=== PATIENT | female | born 1955 | race American Indian/Alaskan Native ===

== ENCOUNTER 2022-02-11 12:11 | Inpatient (IN) | payer MEDICARE ==
[2022-02-11 13:49] LABS: Basophils % (Auto) 0.4 % (0.0-1.8); Eosinophils % (Auto) 0.5 % (0.0-4.3); Lymphocytes # (Auto) 0.3 K/mm3 (1.2-5.4); Lymphocytes % (Auto) 3.4 % (13.4-35.0); Mean Corpuscular HGB Conc 30 % (30-34); Mean Corpuscular Volume 93 fl (79-97); Monocytes # (Auto) 1.3 K/mm3 (0.0-0.8); Platelet Count 109 K/mm3 (140-440); Red Blood Count 3.31 M/mm3 (3.65-5.03)
[2022-02-11 14:13] LABS: Albumin 4.3 g/dL (3.9-5); Calcium 9.3 mg/dL (8.4-10.2)
[2022-02-11 14:15] LABS: Hematocrit 30.9 % (30.3-42.9); Hemoglobin 9.1 gm/dl (10.1-14.3); Red Cell Distribution Width 21.8 % (13.2-15.2)
[2022-02-11 15:04] LABS: ABG Base Excess 11.5 mmol/L (-2.0-3.0); ABG HCO3 40.5 mmol/L (20.0-26.0); ABG Methemoglobin 0.5 % (0.0-1.5); ABG Oxygen Saturation 97.1 % (95.0-99.0); ABG PCO2 90.9 mm Hg; ABG PH 7.267 pH Units (7.350-7.450); ABG PO2 103.1 mm Hg (80.0-90.0)
--- NOTE | 2022-02-11 16:08 | XRay Report ---
CHEST 1 VIEW 02/11/2022 2:57 PM INDICATION / CLINICAL INFORMATION: Hypoxia, abnormal blood gas. COMPARISON: 01/22/2015 FINDINGS: SUPPORT DEVICES: None. HEART / MEDIASTINUM: Mild cardiomegaly, new since the previous exam LUNGS / PLEURA: There is mild central pulmonary venous congestion, new. No convincing infiltrate, ple ural effusion or pneumothorax on portable exam. ADDITIONAL FINDINGS: No significant additional findings. IMPRESSION: 1. New cardiomegaly and pulmonary venous congestion. Signer Name: Compa Aguiar Jr, MD Signed: 02/11/2022 4:04 PM Workstation Name: [id number]
--- NOTE | 2022-02-11 16:33 | History and Physical Report ---
History of Present Illness Chief complaint: I feel tired History of present illness: 66 YO Female with HTN, Lung Cancer in Remission, OA, COPD, Chronic respiratory Failure on Home Oxygen at 5L via NC, Mild Intermittent Asthma, CHF, Paroxysmal Atrial Fib, HLD, DM, Chronic Pain Syndrome presents ED for evaluation. Patient reports "I feel tired". Patient is lethargic with diminished cognition and is unable to provide detailed history. Patient history brought by EMS staff, ED staff, as well as patient daughter who is at bedside during interview. As per daughter the patient has experienced increased pain over the past several days and took additional dose of benzodiazepine as well as pain medication. Patient subsequently became confused with decreased responsiveness. EMS notified and upon arrival the patient was found to be in distress with a pulse oximetry in the 40s. Patient placed on noninvasive positive pressure ventilation and transported to [facility] for further care and evaluation of the aforementioned symptoms. The patient was seen and evaluated in the emergency department. All lab and imaging studies reviewed. Patient found to have a pulse oximetry of 85% on room air which is consistent with acute hypoxemic respiratory failure suspected secondary to unintentional overdose, respiratory acidosis, and acute kidney injury. Patient admitted to medical floor due to increased risk of worsening symptoms after medical stabilization. Patient continued on noninvasive positive pressure ventilation. No reports of fever, chills, chest pain, palpitation, adductive cough, skin rash, trauma, unilateral leg swelling pain, palpitations, individual/family history of DVT/PE/bleeding/blood clotting disorders, known exposure to COVID-19. No prior admission for review. All medication listed at time of admission as reconciled. Advanced care planning conducted in ED. Past History Past Medical History: atrial fib, COPD, heart failure, hypertension, hyperlipi demia, other (See HPI) Past Surgical History: No surgical history, Other (Reviewed) Social history: . denies: smoking, alcohol abuse, prescription drug abuse Family history: diabetes, hypertension Medications and Allergies Allergies Allergy/AdvReac Type Severity Reaction Status Date / Time Sulfa (Sulfonamide Allergy Severe Hives Verified 02/11/22 12:17 Antibiotics) Home Medications Medication Instructions Recorded Confirmed Last Taken Type HYDROcodone/APAP 10-325 [[place] 1 tab PO Q6H PRN 01/16/15 08/01/15 12/13/19 History 10-325 mg TAB] Simvastatin (NF) [Zocor TAB] 40 mg PO DAILY 01/16/15 08/01/15 12/14/19 History Tiotropium [place] [Spiriva] 2 puff IH BID 01/16/15 08/01/15 12/14/19 History Venlafaxine HCl [Effexor Xr] 150 mg PO DAILY 01/16/15 08/01/15 10/15/18 History metFORMIN [Glucophage] 500 mg PO QDAY 01/16/15 08/01/15 12/14/19 History Dexlansoprazole [Dexilant] 60 mg PO QDAY 01/17/15 08/01/15 12/14/19 History Loratadine (Nf) [Claritin (Nf)] 10 mg PO DAILY 01/17/15 08/01/15 12/14/19 Histo ry Montelukast [Singulair] 10 mg PO QPM 01/17/15 08/01/15 11/24/19 History Valsartan/Hydrochlorothiazide 1 tab PO QDAY 01/17/15 08/01/15 07/31/15 History [Diovan Hct 160-25 mg] traZODone [Desyrel] 100 mg PO QHS 01/17/15 08/01/15 12/13/19 History Colesevelam HCl [Welchol] 625 mg PO BID 30 Days #60 tablet 12/15/19 Unknown Rx Fluconazole [Diflucan ORAL SOLN] 100 mg PO QDAY 10 Days #10 12/15/19 Unknown Rx oral.liqd hydroCHLOROthiazide [HCTZ] 12/15/19 12/14/19 History metroNIDAZOLE [Flagyl TAB] 250 mg PO Q8HR 10 Days #30 tablet 12/15/19 Unknown Rx Review of Systems Constitutional: no weight loss, no weight gain, no fever, no chills Ears, nose, mouth and throat: no ear pain, no ear discharge, no tinnitis, no nose pain Breasts: no change in shape, no swelling, no mass Cardiovascular: no chest pain, no orthopnea, no palpitations, no rapid/irregular heart beat Respiratory: no cough, no excessive sputum, no shortness of breath Gastrointestinal: no nausea, no vomiting, no diarrhea, no constipation Genitourinary Female: no pelvic pain, no flank pain, no dysuria, no urinary frequency, no urgency Rectal: no pain, no incontinence, no bleeding Musculoskeletal: no neck stiffness, no arm numbness/tingling, no low back pain, no shooting leg pain Integumentary: no rash, no pruritis, no redness, no wounds, no blisters Neurological: no paralysis, no parathesias Psychiatric: no memory loss, no sleep disturbances, no hypersomnia, no change in libido Endocrine: no cold intolerance, no heat intolerance, no polydipsia, no polyuria Hematologic/Lymphatic: no easy bruising, no easy bleeding Allergic/Immunologic: no allergic rhinitis, no wheezing Exam - Constitutional Vitals: Temp Pulse Resp BP Pulse Ox 97.5 F L 68 20 120/68 98 02/11/22 12:43 02/11/22 14:54 02/11/22 14:54 02/11/22 14:54 02/11/22 14:54 General appearance: Present: mild distress - EENT Eyes: Present: PERRL ENT: hearing intact, clear oral mucosa, hearing decreased - Neck Neck: Present: supple, normal ROM - Respiratory Respiratory effort: normal Respiratory: bilateral: diminished - Cardiovascular Heart Sounds: Present: S1 & S2. Absent: rub, click - Extremities Extremities: pulses symmetrical, No edema Peripheral Pulses: within normal limits - Abdominal General gastrointestinal: Present: soft, non-tender, non-distended, normal bowel sounds Female genitourinary: Present: normal - Integumentary Integumentary: Present: clear, warm, dry - Musculoskeletal Musculoskeletal: gait normal, strength equal bilaterally - Psychiatric Psychiatric: appropriate mood/affect, intact judgment & insight - Neurologic Neurologic: CNII-XII intact, moves all extremities Results - Labs CBC & Chem 7: 02/11/22 13:06 02/11/22 13:06 Labs: Abnormal lab results 02/11/22 02/11/22 02/11/22 Range/Units 13:06 13:06 13:06 RBC 3.31 L (3.65-5.03) M/mm3 Hgb 9.1 L (10.1-14.3) gm/dl RDW 21.8 H (13.2-15.2) % Plt Count 109 L (140-440) K/mm3 Lymph % (Auto) 3.4 L (13.4-35.0) % [place] % (Auto) 15.0 H (0.0-7.3) % Lymph # (Auto) 0.3 L (1.2-5.4) K/mm3 [place] # (Auto) 1.3 H (0.0-0.8) K/mm3 Seg Neutrophils % 80.7 H (40.0-70.0) % ABG pH (7.350-7.450) pH Units ABG pO2 (80.0-90.0) mm Hg ABG HCO3 (20.0-26.0) mmol/L ABG Base Excess (-2.0-3.0) mmol/L ABG Hemoglobin (12.0-16.0) gm/dl Oxyhemoglobin (95.0-99.0) % Potassium 5.1 H (3.6-5.0) mmol/L Chloride 97.3 L (98-107) mmol/L Carbon Dioxide 36 H (22-30) mmol/L BUN 38 H (7-17) mg/dL Creatinine 2.0 H (0.6-1.2) mg/dL Total Protein 5.9 L (6.3-8.2) g/dL Salicylates < 0.3 L (2.8-20.0) mg/dL Acetaminophen (10.0-30.0) ug/mL 02/11/22 02/11/22 Range/Units 13:06 14:39 RBC (3.65-5.03) M/mm3 Hgb (10.1-14.3) gm/dl RDW (13.2-15.2) % Plt Count (140-440) K/mm3 Lymph % (Auto) (13.4-35.0) % [place] % (Auto) (0.0-7.3) % Lymph # (Auto) (1.2-5.4) K/mm3 [place] # (Auto) (0.0-0.8) K/mm3 Seg Neutrophils % (40.0-70.0) % ABG pH 7.267 L (7.350-7.450) pH Units ABG pO2 103.1 H (80.0-90.0) mm Hg ABG HCO3 40.5 H (20.0-26.0) mmol/L ABG Base Excess 11.5 H (-2.0-3.0) mmol/L ABG Hemoglobin 8.5 L (12.0-16.0) gm/dl Oxyhemoglobin 94.2 L (95.0-99.0) % Potassium (3.6-5.0) mmol/L Chloride (98-107) mmol/L Carbon Dioxide (22-30) mmol/L BUN (7-17) mg/dL Creatinine (0.6-1.2) mg/dL Total Protein (6.3-8.2) g/dL Salicylates (2.8-20.0) mg/dL Acetaminophen 5.0 L (10.0-30.0) ug/mL Assessment and Plan - Patient Problems (1) Acute and chronic respiratory failure with hypercapnia Current Visit: Yes Status: Acute Plan to address problem: Chest x-ray, supplemental oxygen, pulse oximetry, noninvasive positive pressure ventilation, arterial blood gas, supportive care. Pulmonary toilet. (2) Acute kidney injury ([place]) with acute tubular necrosis (ATN) Current Visit: Yes Status: Acute Plan to address problem: IV fluid resuscitation therapy as clinically indicated, BMP, repeat BMP in a.m., monitor fluid balance. (3) Accidental overdose Current Visit: Yes Status: Acute Qualifiers: Encounter type: initial encounter Qualified Code(s): T50.901A - Poisoning by unspecified drugs, medicaments and biological substances, accidental (unintentional), initial encounter Plan to address problem: Supportive care, hold narcotic therapy for the next 8 hours. Pain control, supportive care. NSAID therapy as clinically indicated. (4) Chronic pain syndrome Current Visit: Yes Status: Acute Plan to address problem: Supportive care, continue medical management. Hold narcotic therapy for the next 8 hours. NSAID therapy as clinically indicated. (5) COPD (chronic obstructive pulmonary disease) Current Visit: No Status: Chronic Qualifiers: COPD type: chronic bronchitis Chronic bronchitis type: simple Qualified Code(s): J41.0 - Simple chronic bronchitis Plan to address problem: Submental oxygen, pulse oximetry, nebulizer therapy, pulmonary toilet, continue medical management. No acute exacerbation at this time. (6) HTN (hypertension) Current Visit: No Status: Chronic Qualifiers: Hypertension type: primary hypertension Qualified Code(s): I10 - Essential (primary) hypertension Plan to address problem: Monitor blood pressure every shift, continue medical management. (7) Lung cancer Current Visit: Yes Status: Acute Plan to address problem: Chronic, supportive care. Outpatient oncology follow-up. (8) DVT prophylaxis Current Visit: Yes Status: Acute Plan to address problem: SCD to bilateral lower extremities while in bed (9) Advance care planning Current Visit: Yes Status: Acute Plan to address problem: Disease education data, care plan discussed, diagnoses discussed, prognosis discussed, patient is full code. Patient family acknowledges understanding and agreement with care plan. +30 minutes (10) Preventative health care Current Visit: Yes Status: Acute Plan to address problem: Patient and family counseled regarding home safety, monitoring narcotic ingestion, outpatient follow-up with primary care physician for all age and risk factor appropriate screening test. +30 minutes.
--- NOTE | 2022-02-11 16:38 | Emergency Department Report ---
ED General Adult HPI - General Chief complaint: Overdose Stated complaint: OVERDOSE Time Seen by Provider: 02/11/22 12:52 Source: patient, EMS Mode of arrival: Stretcher Limitations: No Limitations - History of Present Illness Initial comments: Patient is a 66-year-old female with history of lung cancer in remission brought in by EMS for suspected overdose. Patient has chronic right shoulder pain due to rotator cuff tear and uses fentanyl patches. In addition to her fentanyl patch she took oxycodone and Xanax. Daughter reports patient was severely altered and minimally responsive and called EMS. Initial oxygen saturations were in the 40s. She was subsequently placed on a nonrebreather and given Narcan. On arrival she is awake and appears to be in no acute distress. She is oxygen dependent and on 5 L at baseline. Uses CPAP at night. Severity scale (0 -10): 0 - Related Data Home Medications Medication Instructions Recorded Confirmed Last Taken HYDROcodone/APAP 10-325 [[place] 1 tab PO Q6H PRN 01/16/15 08/01/15 12/13/19 10-325 mg TAB] Simvastatin (NF) [Zocor TAB] 40 mg PO DAILY 01/16/15 08/01/15 12/14/19 Tiotropium [place] [Spiriva] 2 puff IH BID 01/16/15 08/01/15 12/14/19 Venlafaxine HCl [Effexor Xr] 150 mg PO DAILY 01/16/15 08/01/15 10/15/18 metFORMIN [Glucophage] 500 mg PO QDAY 01/16/15 08/01/15 12/14/19 Dexlansoprazole [Dexilant] 60 mg PO QDAY 01/17/15 08/01/15 12/14/19 Loratadine (Nf) [Claritin (Nf)] 10 mg PO DAILY 01/17/15 08/01/15 12/14/19 Montelukast [Singulair] 10 mg PO QPM 01/17/15 08/01/15 11/24/19 Valsartan/Hydrochlorothiazide 1 tab PO QDAY 01/17/15 08/01/15 07/31/15 [Diovan Hct 160-25 mg] traZODone [Desyrel] 100 mg PO QHS 01/17/15 08/01/15 12/13/19 hydroCHLOROthiazide [HCTZ] 12/15/19 12/14/19 Previous Rx's Medication Instructions Recorded Last Taken Type Colesevelam HCl [Welchol] 625 mg PO BID 30 Days #60 tablet 12/15/19 Unknown Rx Fluconazole [Diflucan ORAL SOLN] 100 mg PO QDAY 10 Days #10 12/15/19 Unknown Rx oral.liqd metroNIDAZOLE [Flagyl TAB] 250 mg PO Q8HR 10 Days #30 tablet 12/15/19 Unknown Rx Allergies Allergy/AdvReac Type Severity Reaction Status Date / Time Sulfa (Sulfonamide Allergy Severe Hives Verified 02/11/22 12:17 Antibiotics) ED Review of Systems ROS: Stated complaint: OVERDOSE Other details as noted in HPI Constitutional: denies: chills, fever Respiratory: denies: cough, shortness of breath, wheezing Cardiovascular: denies: chest pain, palpitations Gastrointestinal: denies: abdominal pain, nausea, diarrhea Musculoskeletal: arthralgia Skin: denies: rash, lesions Neurological: denies: headache, weakness, paresthesias Psychiatric: denies: anxiety, depression ED Past Medical Hx - Past Medical History Hx Hypertension: Yes Hx Heart Attack/AMI: No Hx Diabetes: Yes Hx GERD: Yes Hx Liver Disease: No Hx Renal Disease: No Hx Arthritis: Yes Hx Seizures: No Hx Asthma: Yes Hx COPD: Yes Hx HIV: No Additional medical history: AFIB. CHF - Social History Smoking Status: Never Smoker Substance Use Type: None - Medications Home Medications: Home Medications Medication Instructions Recorded Confirmed Last Taken Type HYDROcodone/APAP 10-325 [[place] 1 tab PO Q6H PRN 01/16/15 08/01/15 12/13/19 History 10-325 mg TAB] Simvastatin (NF) [Zocor TAB] 40 mg PO DAILY 01/16/15 08/01/15 12/14/19 History Tiotropium [place] [Spiriva] 2 puff IH BID 01/16/15 08/01/15 12/14/19 History Venlafaxine HCl [Effexor Xr] 150 mg PO DAILY 01/16/15 08/01/15 10/15/18 History metFORMIN [Glucophage] 500 mg PO QDAY 01/16/15 08/01/15 12/14/19 History Dexlansoprazole [Dexilant] 60 mg PO QDAY 01/17/15 08/01/15 12/14/19 History Loratadine (Nf) [Claritin (Nf)] 10 mg PO DAILY 01/17/15 08/01/15 12/14/19 History Montelukast [Singulair] 10 mg PO QPM 01/17/15 08/01/15 11/24/19 History Valsartan/Hydrochlorothiazide 1 tab PO QDAY 01/17/15 08/01/15 07/31/15 History [Diovan Hct 160-25 mg] traZODone [Desyrel] 100 mg PO QHS 01/17/15 08/01/15 12/13/19 History Colesevelam HCl [Welchol] 625 mg PO BID 30 Days #60 tablet 12/15/19 Unknown Rx Fluconazole [Diflucan ORAL SOLN] 100 mg PO QDAY 10 Days #10 12/15/19 Unknown Rx oral.liqd hydroCHLOROthiazide [HCTZ] 12/15/19 12/14/19 History metroNIDAZOLE [Flagyl TAB] 250 mg PO Q8HR 10 Days #30 tablet 12/15/19 Unknown Rx ED Physical Exam - General Limitations: No Limitations General appearance: alert, in no apparent distress - Head Head exam: Present: atraumatic, normocephalic - Respiratory Respiratory exam: Present: normal lung sounds bilaterally. Absent: respiratory distress - Cardiovascular Cardiovascular Exam: Present: regular rate, normal rhythm, normal heart sounds - GI/Abdominal GI/Abdominal exam: Present: soft. Absent: distended, tenderness - Rectal Rectal exam: Present: deferred - Neurological Exam Neurological exam: Present: alert, oriented X3 - Psychiatric Psychiatric exam: Present: normal affect, normal mood - Skin Skin exam: Present: warm, dry, intact, normal color ED Course Vital Signs 02/11/22 02/11/22 02/11/22 12:17 12:37 12:43 Temperature 97.5 F L Pulse Rate 70 62 Respiratory 20 Rate Blood Pressure 128/71 Blood Pressure 147/78 128/71 [Left] O2 Sat by Pulse 92 98 100 Oximetry 02/11/22 02/11/22 02/11/22 12:45 13:00 13:12 Temperature Pulse Rate 62 64 Respiratory 18 16 Rate Blood Pressure 128/71 120/66 Blood Pressure [Left] O2 Sat by Pulse 100 73 L 45 L Oximetry 02/11/22 14:54 Temperature Pulse Rate 68 Respiratory 20 Rate Blood Pressure Blood Pressure 120/68 [Left] O2 Sat by Pulse 98 Oximetry ED Medical Decision Making - Lab Data Result diagrams: 02/11/22 13:06 02/11/22 13:06 - Medical Decision Making ABG shows pH of 7.26, PCO2 90, PO2 103, HCO3 40. BiPAP ordered. Chest x-ray shows new cardiomegaly with pulmonary venous congestion. No edema or effusion noted. Critical care attestation.: If time is entered above; I have spent that time in minutes in the direct care of this critically ill patient, excluding procedure time. ED Disposition Clinical Impression: Acute and chronic respiratory failure with hypercapnia Disposition: ADMITTED INPATIENT Is pt being admited?: Yes Condition: Stable Referrals: PRIMARY CARE, [Primary Care Provider] - 3-5 Days
[2022-02-11] MEDS ORDERED: SODIUM CHLORIDE 0.9% 1000 ML 1,000 ML IV SCH (17:00)
[2022-02-11] MEDS ORDERED: ALBUTEROL 2.5 MG/3 ML NEBU IH PRN (17:00)
[2022-02-11] MEDS ORDERED: HYDROmorphone 0.5 MG/0.5 ML INJ IV PRN (17:00)
[2022-02-11] MEDS ORDERED: ACETAMINOPHEN 325 MG TAB PO PRN (17:00)
[2022-02-11] MEDS ORDERED: oxyCODONE /ACETAMINOPHEN 5-325MG TAB PO PRN (17:00)
[2022-02-11] MEDS ORDERED: ONDANSETRON 4 MG/2 ML INJ IV PRN (17:00)
[2022-02-11] MEDS: PRAVASTATIN 80 MG TAB PO SCH (22:42)
[2022-02-11] MEDS: traZODone 100 MG TAB PO SCH (22:43)
[2022-02-11] MEDS: COLESEVELAM 625 MG TAB PO SCH (22:43)
[2022-02-11] MEDS: MONTELUKAST 10 MG TAB PO SCH (22:43)
[2022-02-11] MEDS: TIOTROPIUM 18 MCG CAP INHALATION IH SCH (22:44)
[2022-02-12 06:04] LABS: Basophils % (Auto) 0.4 % (0.0-1.8); Eosinophils # (Auto) 0.2 K/mm3 (0.0-0.4); Eosinophils % (Auto) 3.5 % (0.0-4.3); Hematocrit 28.6 % (30.3-42.9); Hemoglobin 8.6 gm/dl (10.1-14.3); Lymphocytes # (Auto) 0.5 K/mm3 (1.2-5.4); Lymphocytes % (Auto) 10.5 % (13.4-35.0); Mean Corpuscular HGB Conc 30 % (30-34); Mean Corpuscular Volume 92 fl (79-97); Monocytes # (Auto) 0.6 K/mm3 (0.0-0.8); Monocytes % (Auto) 12.9 % (0.0-7.3); Platelet Count 106 K/mm3 (140-440)
[2022-02-12 06:08] LABS: Red Cell Distribution Width 21.2 % (13.2-15.2)
[2022-02-12] MEDS: TIOTROPIUM 18 MCG CAP INHALATION IH SCH ×2 (09:16→22:07)
[2022-02-12] MEDS ORDERED: NON-FORMULARY EACH (Valsartan/Hydrochlorothiazide [Diovan Hct 160-25 Mg] 1 EACH Tablet) PO SCH (10:00)
[2022-02-12] MEDS ORDERED: NON-FORMULARY EACH (Loratadine (Nf) 10 MG Tablet) PO SCH (10:00)
[2022-02-12] MEDS ORDERED: NON-FORMULARY EACH (Simvastatin (Nf) 40 MG Tablet) PO SCH (10:00)
[2022-02-12] MEDS ORDERED: NON-FORMULARY EACH (Venlafaxine Hcl [Effexor Xr] 150 MG Cap.Er.24h) PO SCH (10:00)
[2022-02-12] MEDS ORDERED: VALSARTAN 160MG TAB PO SCH (10:00)
[2022-02-12] MEDS ORDERED: hydroCHLOROthiazide 25 MG TAB PO SCH (10:00)
[2022-02-12] MEDS: CETIRIZINE 10 MG TAB PO SCH (11:53)
--- NOTE | 2022-02-12 12:00 | Progress Note ---
Assessment and Plan Assessment and plan: (1) Acute and chronic respiratory failure with hypercapnia-improving Current Visit: Yes Status: Acute Plan to address problem: Chest x-ray, supplemental oxygen, pulse oximetry, noninvasive positive pressure ventilation, arterial blood gas, supportive care. Pulmonary toilet. (2) Acute kidney injury (ALVARADO) with acute tubular necrosis (ATN) Current Visit: Yes Status: Acute Plan to address problem: IV fluid resuscitation therapy as clinically indicated, BMP, repeat BMP in a.m., monitor fluid balance. (3) Accidental overdose Current Visit: Yes Status: Acute Qualifiers: Encounter type: initial encounter Qualified Code(s): T50.901A - Poisoning by unspecified drugs, medicaments and biological substances, accidental (unintentional), initial encounter Plan to address problem: Supportive care, hold narcotic therapy for the next 8 hours. Pain control, supportive care. NSAID therapy as clinically indicated. (4) Chronic pain syndrome Current Visit: Yes Status: Acute Plan to address problem: Supportive care, continue medical management. Hold narcotic therapy for the next 8 hours. NSAID therapy as clinically indicated. (5) COPD (chronic obstructive pulmonary disease) Current Visit: No Status: Chronic Qualifiers: COPD type: chronic bronchitis Chronic bronchitis type: simple Qualified Code(s): J41.0 - Simple chronic bronchitis Plan to address problem: Submental oxygen, pulse oximetry, nebulizer therapy, pulmonary toilet, continue medical management. No acute exacerbation at this time. (6) HTN (hypertension) Current Visit: No Status: Chronic Qualifiers: Hypertension type: primary hypertension Qualified Code(s): I10 - Essential (primary) hypertension Plan to address problem: Monitor blood pressure every shift, continue medical management. (7) Lung cancer Current Visit: Yes Status: Acute Plan to address problem: Chronic, supportive care. Outpatient oncology follow-up. (8) Advance care planning Current Visit: Yes Status: Acute Plan to address problem: Disease education data, care plan discussed, diagnoses discussed, prognosis discussed, patient is full code. Patient family acknowledges understanding and agreement with care plan. +30 minutes History Interval history: No acute events overnight. Patient tolerated BiPAP. Patient had a fall and was tremulous during examination. CT of the head ordered. Patient placed back in bed on nasal cannula. Hospitalist Physical - Physical exam Narrative exam: GENERAL: Well-developed well-nourished. In no acute distress. HEENT: Nasal cannula in place @5LPM NECK: Supple. CHEST/LUNGS: Coarse breath sounds bilaterally. Prolonged expiratory phase. HEART/CARDIOVASCULAR: RRR. No murmur, rubs or gallops appreciated. ABDOMEN: +BS. NT/ND. SKIN: No rashes noted. NEURO: No focal motor deficit. Follows all commands. MUSCULOSKELETAL: No joint effusion EXTREMITIES: No cyanosis, clubbing or edema. PSYCH: Cooperative. - Constitutional Vitals: Temp Pulse Resp BP Pulse Ox 98.7 F 74 19 95/41 91 02/12/22 11:00 02/12/22 11:11 02/12/22 11:11 02/12/22 11:11 02/12/22 11:11 Results - Labs CBC & Chem 7: 02/12/22 05:12 02/13/22 07:51 Labs: Laboratory Last Values WBC 4.9 K/mm3 (4.5-11.0) 02/12/22 05:12 RBC 3.10 M/mm3 (3.65-5.03) L 02/12/22 05:12 Hgb 8.6 gm/dl (10.1-14.3) L 02/12/22 05:12 Hct 28.6 % (30.3-42.9) L 02/12/22 05:12 MCV 92 fl (79-97) 02/12/22 05:12 MCH 28 pg (28-32) 02/12/22 05:12 MCHC 30 % (30-34) 02/12/22 05:12 RDW 21.2 % (13.2-15.2) H 02/12/22 05:12 Plt Count 106 K/mm3 (140-440) L 02/12/22 05:12 Lymph % (Auto) 10.5 % (13.4-35.0) L 02/12/22 05:12 [place] % (Auto) 12.9 % (0.0-7.3) H 02/12/22 05:12 Eos % (Auto) 3.5 % (0.0-4.3) 02/12/22 05:12 Baso % (Auto) 0.4 % (0.0-1.8) 02/12/22 05:12 Lymph # (Auto) 0.5 K/mm3 (1.2-5.4) L 02/12/22 05:12 [place] # (Auto) 0.6 K/mm3 (0.0-0.8) 02/12/22 05:12 Eos # (Auto) 0.2 K/mm3 (0.0-0.4) 02/12/22 05:12 Baso # (Auto) 0.0 K/mm3 (0.0-0.1) 02/12/22 05:12 Seg Neutrophils % 72.7 % (40.0-70.0) H 02/12/22 05:12 Seg Neutrophils # 3.6 K/mm3 (1.8-7.7) 02/12/22 05:12 ABG pH 7.267 pH Units (7.350-7.450) L 02/11/22 14:39 ABG pCO2 90.9 mm Hg 02/11/22 14:39 ABG pO2 103.1 mm Hg (80.0-90.0) H 02/11/22 14:39 ABG HCO3 40.5 mmol/L (20.0-26.0) H 02/11/22 14:39 ABG O2 Saturation 97.1 % (95.0-99.0) 02/11/22 14:39 ABG O2 Content 11.5 (0.0-44) 02/11/22 14:39 ABG Base Excess 11.5 mmol/L (-2.0-3.0) H 02/11/22 14:39 ABG Hemoglobin 8.5 gm/dl (12.0-16.0) L 02/11/22 14:39 ABG Carboxyhemoglobin 2.4 % (0.0-5.0) 02/11/22 14:39 ABG Methemoglobin 0.5 % (0.0-1.5) 02/11/22 14:39 Oxyhemoglobin 94.2 % (95.0-99.0) L 02/11/22 14:39 FiO2 60 % 02/11/22 14:39 Sodium 143 mmol/L (137-145) 02/12/22 05:12 Potassium 4.1 mmol/L (3.6-5.0) 02/12/22 05:12 Chloride 100.2 mmol/L (98-107) 02/12/22 05:12 Carbon Dioxide 35 mmol/L (22-30) H 02/12/22 05:12 Anion Gap 12 mmol/L 02/12/22 05:12 BUN 32 mg/dL (7-17) H 02/12/22 05:12 Creatinine 1.7 mg/dL (0.6-1.2) H 02/12/22 05:12 Estimated GFR 37 ml/min 02/12/22 05:12 BUN/Creatinine Ratio 19 % 02/12/22 05:12 Glucose 71 mg/dL (65-100) 02/12/22 05:12 Calcium 9.0 mg/dL (8.4-10.2) 02/12/22 05:12 Total Bilirubin 0.30 mg/dL (0.1-1.2) 02/11/22 13:06 AST 27 units/L (5-40) 02/11/22 13:06 ALT 20 units/L (7-56) 02/11/22 13:06 Alkaline Phosphatase 97 units/L (35-129) 02/11/22 13:06 NT-Pro-B Natriuret Pep 627.9 pg/mL (0-900) 02/11/22 16:57 Total Protein 5.9 g/dL (6.3-8.2) L 02/11/22 13:06 Albumin 4.3 g/dL (3.9-5) 02/11/22 13:06 Albumin/Globulin Ratio 2.7 % 02/11/22 13:06 Salicylates < 0.3 mg/dL (2.8-20.0) L 02/11/22 13:06 Acetaminophen 5.0 ug/mL (10.0-30.0) L 02/11/22 13:06 Plasma/Serum Alcohol < 0.01 % (0-0.07) 02/11/22 13:06 Swan/IV: Voiding Method Bedside Commode Active Medications - Current Medications Current Medications: Generic Name Dose Route Start Last Admin Trade Name Freq PRN Reason Stop Dose Admin Acetaminophen 650 mg 02/11/22 17:00 02/12/22 11:53 Acetaminophen 325 Mg Tab PO 650 mg Q4H PRN Administration Pain MILD(1-3)/Fever >100.5/[place] Albuterol 2.5 mg 02/11/22 17:00 Albuterol 2.5 Mg/3 Ml Nebu IH Q4HRT PRN Shortness Of Breath Cetirizine HCl 10 mg 02/12/22 10:00 02/12/22 11:53 Cetirizine 10 Mg Tab PO 10 mg DAILY ARMANDO Administration Colesevelam HCl 625 mg 02/11/22 22:00 02/11/22 22:43 Colesevelam 625 Mg Tab PO 625 mg BID ARMANDO Administration Hydrochlorothiazide 25 mg 02/12/22 10:00 02/12/22 11:53 Hydrochlorothiazide 25 Mg Tab PO Not Given QDAY ARMANDO Hydromorphone HCl 0.5 mg 02/11/22 17:00 Hydromorphone 0.5 Mg/0.5 Ml Inj IV Q23H PRN Pain , Severe (7-10) Sodium Chloride 1,000 mls @ 42 mls/hr 02/11/22 17:00 Nacl 0.9% 1000 Ml IV DIRECT ARMANDO Montelukast Sodium 10 mg 02/11/22 18:00 02/11/22 22:43 Montelukast 10 Mg Tab PO 10 mg QPM ARMANDO Administration Ondansetron HCl 4 mg 02/11/22 17:00 Ondansetron 4 Mg/2 Ml Inj IV Q8H PRN Nausea And Vomiting Oxycodone/Acetaminophen 1 tab 02/11/22 17:00 Oxycodone /Acetaminophen 5-325mg Tab PO Q16H PRN Pain, Moderate (4-6) Pravastatin Sodium 80 mg 02/11/22 22:00 02/11/22 22:42 Pravastatin 80 Mg Tab PO 80 mg QHS ARMANDO Administration Sodium Chloride 10 ml 02/11/22 17:00 02/12/22 11:54 Sodium Chloride 0.9% 10 Ml Flush Syringe IV 10 ml BID ARMANDO Administration Sodium Chloride 10 ml 02/11/22 17:00 Sodium Chloride 0.9% 10 Ml Flush Syringe IV PRN PRN LINE FLUSH Tiotropium [place] 2 puff 02/11/22 22:00 02/12/22 09:16 Tiotropium 18 Mcg Cap Inhalation IH 2 puff BID ARMADNO Administration Trazodone HCl 100 mg 02/11/22 22:00 02/11/22 22:43 Trazodone 100 Mg Tab PO 100 mg QHS AMRANDO Administration Valsartan 160 mg 02/12/22 10:00 02/12/22 11:53 Valsartan 160mg Tab PO Not Given QDAY ARMANDO Venlafaxine HCl 150 mg 02/12/22 10:00 Venlafaxine Xr 75 Mg Cap PO QDAY ARMANDO
[2022-02-12] MEDS: VENLAFAXINE XR 75 MG CAP PO SCH (13:39)
[2022-02-12] MEDS: COLESEVELAM 625 MG TAB PO SCH ×2 (13:39→22:06)
[2022-02-12 17:14] LABS: ABG Base Excess 12.1 mmol/L (-2.0-3.0); ABG HCO3 39.4 mmol/L (20.0-26.0); ABG Methemoglobin 0.6 % (0.0-1.5); ABG Oxygen Saturation 82.7 % (95.0-99.0); ABG PCO2 72.1 mm Hg; ABG PH 7.355 pH Units (7.350-7.450); ABG PO2 51.5 mm Hg (80.0-90.0)
[2022-02-12] MEDS: MONTELUKAST 10 MG TAB PO SCH (18:11)
[2022-02-12 20:58] LABS: ABG Base Excess 12.8 mmol/L (-2.0-3.0); ABG HCO3 40.1 mmol/L (20.0-26.0); ABG Methemoglobin 0.5 % (0.0-1.5); ABG Oxygen Saturation 84.4 % (95.0-99.0); ABG PCO2 73.1 mm Hg; ABG PH 7.358 pH Units (7.350-7.450); ABG PO2 52.7 mm Hg (80.0-90.0)
[2022-02-12] MEDS: traZODone 100 MG TAB PO SCH (22:05)
[2022-02-12] MEDS: PRAVASTATIN 80 MG TAB PO SCH (22:05)
[2022-02-13] MEDS: TIOTROPIUM 18 MCG CAP INHALATION IH SCH ×2 (09:33→16:19)
[2022-02-13 09:54] LABS: Calcium 9.1 mg/dL (8.4-10.2)
[2022-02-13] MEDS: CETIRIZINE 10 MG TAB PO SCH (10:23)
[2022-02-13] MEDS: COLESEVELAM 625 MG TAB PO SCH (10:23)
[2022-02-13] MEDS: VENLAFAXINE XR 75 MG CAP PO SCH (10:23)
--- NOTE | 2022-02-13 11:23 | Cat Scan Report ---
CT head/brain wo con INDICATION: fall/confusion. TECHNIQUE: CT head. All CT scans at this location are performed using CT dose reduction for ALARA by means of automated exposure control. COMPARISON: None. FINDINGS: Intracranial: Fraire-white matter differentiation is maintained. No intracranial hemorrhage. No extra a xial collection. No hydrocephalus. No herniation. Sinuses: Paranasal sinuses and mastoid air cells are essentially clear. Orbits: Globes are intact. Calvarium: No acute fracture. IMPRESSION: 1. No acute intracranial abnormality. Signer Name: Patrice Alvarez MD Signed: 02/13/2022 11:19 AM Workstation Name: [id number]
--- NOTE | 2022-02-13 13:16 | Discharge Summary ---
Providers - Providers Date of Admission: 02/11/22 16:34 Date of discharge: 02/13/22 Attending physician: SMILEY LINO MD Primary care physician: ROTARY FILTER OPERATOR Hospitalization Reason for admission: Acute encephalopathy secondary to accidental overdose Condition: Stable Hospital course: Patient is a 66-year-old female with history of hypertension, lung cancer in remission, chronic respiratory failure on home oxygen and atrial fibrillation who was brought in by EMS after being found lethargic by family. Patient uses fentanyl patch for for torn rotator cuff that is unable to be surgically repaired. She did take benzodiazepine possibly oxycodone that was prescribed to her. She was found to be in acute hypoxic and hypercapnic respiratory failure. She was placed on BiPAP with improvement in her PCO2. She fell twice getting out of the bed unattended. CT of the head was unremarkable. Patient's encephalopathy completely resolved and patient was discharged home with family. Disposition: 01 HOME / SELF CARE / HOMELESS Final Discharge Diagnosis (Prints w/discharge instructions): Acute on chronic hypoxic respiratory failure with hypercapnia. Acute kidney injury with acute tubular necrosis. Acute metabolic encephalopathy secondary to accidental overdose. chronic pain syndrome. Chronic obstructive pulmonary disease. Hypertension. History of lung cancer Time spent for discharge: 40 minutes Core Measure Documentation - Palliative Care Palliative Care/ Comfort Measures: Not Applicable - Core Measures Any of the following diagnoses?: none Exam - Physical Exam Narrative exam: GENERAL: Well-developed well-nourished. In no acute distress. HEENT: Nasal cannula in place @5LPM NECK: Supple. CHEST/LUNGS: Coarse breath sounds bilaterally. Prolonged expiratory phase. HEART/CARDIOVASCULAR: RRR. No murmur, rubs or gallops appreciated. ABDOMEN: +BS. NT/ND. SKIN: No rashes noted. NEURO: No focal motor deficit. Follows all commands. MUSCULOSKELETAL: No joint effusion EXTREMITIES: No cyanosis, clubbing or edema. PSYCH: Cooperative. - Constitutional Vitals: Temp Pulse Resp BP Pulse Ox 99.0 F 72 18 102/52 80 L 02/13/22 11:24 02/13/22 11:24 02/13/22 11:24 02/13/22 11:24 02/13/22 11:24 Plan Care Plan Goals: Please follow-up with your primary care provider and dairy feed worker. We have noticed that your blood pressure has been on the lower side with your home blood pressure medications. We asked that you hold them and measure your blood pressure at home. Your goal blood pressures should to be less than 130/80. If your blood pressures are continuously above that range, please let your primary care provider know so you could restart one of the medications. Please make sure to not take your other pain and sedating medications when you have the fentanyl patch on. Follow up with: PRIMARY CARE, [Primary Care Provider] - 3-5 Days
[2022-02-13 16:52] VITALS: BP 113/80
== END 2022-02-13 18:48 | disposition home health service (06) | DRG 917 ==
LOC: ED 12:11 → 3A 16:34
PROVIDERS: ADMIT Internal Medicine; ATTEND Student in an Organized Health Care Education/Training Program
PROC: 4A033R1 Measurement of Arterial Saturation, Peripheral, Percutaneous Approach (ICD-10-PCS; principal; 2022-02-11)
PROC: 5A09457 Assistance with Respiratory Ventilation, 24-96 Consecutive Hours, Continuous Positive Airway Pressure (ICD-10-PCS; 2022-02-11)
DX: T40.411A Poisoning by fentanyl or fentanyl analogs, accidental (unintentional), initial encounter (principal); G92.8 Other toxic encephalopathy; J96.22 Acute and chronic respiratory failure with hypercapnia; N17.0 Acute kidney failure with tubular necrosis; T42.4X1A Poisoning by benzodiazepines, accidental (unintentional), initial encounter; F41.9 Anxiety disorder, unspecified; J44.9 Chronic obstructive pulmonary disease, unspecified; M19.90 Unspecified osteoarthritis, unspecified site; J45.20 Mild intermittent asthma, uncomplicated; I50.9 Heart failure, unspecified; I48.0 Paroxysmal atrial fibrillation; E78.5 Hyperlipidemia, unspecified; E11.9 Type 2 diabetes mellitus without complications; G89.4 Chronic pain syndrome; I11.0 Hypertensive heart disease with heart failure; Z82.49 Family history of ischemic heart disease and other diseases of the circulatory system; Z83.3 Family history of diabetes mellitus; Y92.89 Other specified places as the place of occurrence of the external cause; Z85.118 Personal history of other malignant neoplasm of bronchus and lung
CPT/HCPCS: 36415; 36600; 70450; 71045; 80048; 80053; 80320; 82803; 82962; 83880; 85025; 94660; 99285; G0378; G0480; J7030